=== PATIENT | male | born 2000 | race Caucasian/White ===

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

== ENCOUNTER → 2019-01-29 11:04 | Outpatient (CLI) | payer OTHER, SELFPAY | DX: Z23 Encounter for immunization (principal) | CPT/HCPCS: 90471; 90686 ==

== ENCOUNTER 2019-05-18 09:56 | Emergency (ER) | payer OTHER, SELFPAY ==
[2019-05-18 09:57] VITALS: BP 142/74; PULSE 78; RESP 18; TEMP 36.7; O2SAT 99
--- NOTE | 2019-05-18 10:13 | ED_ITS ---
HPI - Headache General Chief Complaint: Headache Stated Complaint: MIGRAINES 6XD PERSCRIPTION/ WORSEING/ EAR PAIN Time Seen by Provider: 05/18/19 10:12 Mode of arrival: Ambulatory Limitations: no limitations History of Present Illness HPI Narrative: Otherwise healthy 19-year-old gentleman presents with headache for 6 days. Seen on day 2 by his primary care physician and got a IM injection of Toradol which helped for approximately a day. He was also given p.o. Toradol and he has taken 1 tablet a day for the next number of days with no relief from the headache. Yesterday he began having vomiting and diarrhea and at this point is unable to keep food or liquids in and the headache is getting worse. He also complains of left ear tinnitus and decreased hearing. Denies fevers or chills or additional neurologic symptoms, no cough, abdominal pain, edema, rashes Related Data Allergies Allergy/AdvReac Type Severity Reaction Status Date / Time penicillin G Allergy Unknown Verified 05/18/19 11:16 Review of Systems Review of Systems Narrative: All systems reviewed and are unremarkable except as noted in HPI and below Patient History Medical History (Updated 05/18/19 @ 13:09 by Natty Ramirez MD) Attention deficit hyperactivity disorder (ADHD), combined type (Acute) Social History Smoking Status: Never smoker Smoking Status: Never smoker Substance Use Type: does not use Exam Narrative Exam Narrative: General: Fatigued appearing, in no acute distress. Able to give a complete and coherent history. Well-nourished well-developed HEENT: Moist mucous membranes, normal sclera with reactive pupils, left lid droop that is chronic. Left tympanic membrane is completely occluded with cerumen right is unremarkable Neck: No JVD, supple Respiratory: Lungs are clear to auscultation, no wheezing no rales no rhonchi. Full and symmetrical air movement Cardiac: Regular rate and rhythm no murmurs no bruits Abdomen: Soft nontender good bowel tones, no flank pain Skin: Warm and dry, no rashes Neurologic: Grossly neurologically intact with no obvious asymmetries or abnormalities Extremities: No trauma, well perfused Psych: Cooperative, appropriate insight and affect Initial Vital Signs Initial Vital Signs: Vital Signs Temperature 98.1 F 05/18/19 09:57 Pulse Rate 78 05/18/19 09:57 Respiratory Rate 18 05/18/19 09:57 Blood Pressure 142/74 H 03/08/20 09:57 Pulse Oximetry 99 05/18/19 09:57 Course Orders Ordered: Discontinued Medications Dexamethasone (Decadron) 10 mg IV NOW ONE Stop: 05/18/19 10:29 Last Admin: 05/18/19 11:05 Dose: 10 mg Documented by: EMELINA Diphenhydramine HCl (Benadryl) 25 mg IV NOW ONE Stop: 05/18/19 10:29 Last Admin: 05/18/19 11:04 Dose: 25 mg Documented by: EMELINA Sodium Chloride (Normal Saline 0.9%) 1,000 mls @ 1,000 mls/hr IV BOLUS ONE Stop: 05/18/19 11:27 Last Infusion: 05/18/19 12:36 Dose: 0 mls/hr Documented by: Admin: 05/18/19 11:04 Dose: 1,000 mls/hr Documented by: EMELINA Metoclopramide HCl (Reglan) 10 mg IV NOW ONE Stop: 05/18/19 10:29 Last Admin: 05/18/19 11:05 Dose: 10 mg Documented by: EMELINA Vital Signs Vital signs: Vital Signs - 8 hr 05/18/19 09:57 05/18/19 11:23 Temperature 98.1 F Pulse Rate 78 55 L Respiratory Rate 18 18 Blood Pressure 142/74 H Blood Pressure [Left Arm] 131/66 Pulse Oximetry 99 96 [facility] - Headache Medical Records Attestation: I reviewed the patient's medical records. [facility] Narrative Medical decision making narrative: Presents with 6 days of headache severe enough the last 48 hours has begun to vomit. Moderately dehydrated no acute neurologic changes. Improved with hydration Reglan IV Benadryl Decadron given for length of the headache. He does have p.o. ketorolac available at home. Significantly improved by time of discharge in safe for home discharge at this time. Discharge Plan Departure Patient Disposition: Home Clinical Impression: Acute dehydration Migraine Qualifiers: Migraine type: without aura Status migrainosus presence: without status migrainosus Intractability: not intractable Qualified Code(s): G43.009 - Migraine without aura, not intractable, without status migrainosus Vomiting Qualifiers: Vomiting type: unspecified Vomiting Intractability: non-intractable Nausea presence: with nausea Qualified Code(s): R11.2 - Nausea with vomiting, unspecified Instructions: DI for Migraine Activity Restrictions/Additional Instructions: Thank you for coming in I am sorry about the headache that is been there for the whole week. In the emergency room your given 2 L of IV fluid, Reglan for both nausea and headache control and since the headache has been present for almost a week your also given 10 mg of IV Decadron (a steroid) and IV Benadryl to make both of those medications more effective I am glad you are feeling better. I would encourage you to keep your follow-up appointment with your primary care physician tomorrow. If there are new or concerning symptoms, please return to the emergency room and I happy to re-evaluate. Referrals: Jennifer Feldman ARNP [Primary Care Provider] -
[2019-05-18] MEDS: diphenhydrAMINE 50 MG/ML VIAL 25 MG IV (11:04)
[2019-05-18] MEDS: SODIUM CHLORIDE 0.9% 1,000 ML 1000 ML IV (11:04)
[2019-05-18] MEDS: DEXAMETHASONE 10 MG/ML VIAL IV (11:05)
[2019-05-18] MEDS: METOCLOPRAMIDE 10 MG/2 ML INJ IV (11:05)
--- NOTE | 2019-05-18 11:21 | PC.NURSE ---
6 days of right amish headache, +nausea,, denies fever, vomiting, denies visual changes, denies injuries. sensitive to noise, denies photophobia, moving all extremities. skin warm dry pink.
[2019-05-18 11:23] VITALS: BP 131/66; PULSE 55; RESP 18; O2SAT 96
[2019-05-18 13:24] VITALS: BP 127/64; PULSE 77; RESP 16; O2SAT 100
== END 2019-05-18 13:24 | disposition home or self-care (01) ==
PROVIDERS: Emergency Provider Emergency Medicine; PCP Internal Medicine
DX: E86.0 Dehydration (principal); G43.009 Migraine without aura, not intractable, without status migrainosus; R11.2 Nausea with vomiting, unspecified
CPT/HCPCS: 96361; 96374; 96375; 99284; J1100; J1200; J2765

== ENCOUNTER → 2019-05-21 13:28 | Outpatient (CLI) | payer OTHER, SELFPAY ==
--- NOTE | 2019-05-21 | DI.MRI.S_ITS ---
PROCEDURE: MR HEAD/BRAIN WO/W CON INDICATIONS: Headache TECHNIQUE: Noncontrast axial T1 spin echo, axial T2 fast spin echo, sagittal and axial FLAIR, coronal T2 fast spin echo, axial gradient echo, axial diffusion and ADC through the brain. After the administration of contrast, axial and coronal 3D VIBE or T1 spin echo with fat saturation through the brain. COMPARISON: None. FINDINGS: Image quality: Excellent. CSF Spaces: Basal cisterns are patent. No extra-axial fluid collections. Ventricles are normal in size and shape. Brain: No midline shift. No intracranial bleeds or masses. No abnormal intracranial enhancement. The brainstem appears normal. Diffusion-weighted images demonstrate no acute ischemic insults. No chronic ischemic insults. Normal intravascular flow voids are present. Skull and face: Calvarial marrow is normal in signal. Orbits appear normal. Bilateral scalp skin nodules are seen for example image 17/9, image 16/9 which are technically indeterminate and recommend direct visual inspection Sinuses: Sinuses and mastoids appear clear. IMPRESSION: No evidence of acute ischemia. No acute intracranial signal abnormality or enhancement. Nonspecific multiple scalp skin nodules as above, technically indeterminate. Recommend direct visual inspection Dictated by: Laureano Olmos M.D. on 05/21/2019 at 14:34 Approved by: Laureano Olmos M.D. on 05/21/2019 at 14:42
== END ==
PROVIDERS: PCP Family Medicine; Referring Provider Family Medicine; Visit Provider Family Medicine
DX: R51 Headache (principal); R22.0 Localized swelling, mass and lump, head
CPT/HCPCS: 70553

== ENCOUNTER 2019-11-22 21:21 | Emergency (ER) | payer OTHER, SELFPAY ==
[2019-11-22 21:31] VITALS: BP 129/83; PULSE 74; RESP 18; TEMP 36.9; O2SAT 98; BMI 32.5
--- NOTE | 2019-11-22 21:47 | ED.UPPEXIN ---
HPI - Extremity Injury (Upper) General Chief Complaint: Extremity Injury, Upper Stated Complaint: something stuck him at work, R hand burning Time Seen by Provider: 11/22/19 21:45 Source: patient Mode of arrival: Ambulatory Limitations: no limitations History of Present Illness HPI narrative: 19-year-old otherwise healthy gentleman at work today noticed a slight irritation to the back of his right hand. Was worried that it could be a needle stick or a bug bite. Each time he put gloves back on he would become increasingly hot and irritated. Related Data Allergies Allergy/AdvReac Type Severity Reaction Status Date / Time penicillin G Allergy Unknown Verified 05/18/19 11:16 Review of Systems Review of Systems Narrative: No fevers, chills, cough, erythema to the hand or lymphangitic spread Patient History Medical History Attention deficit hyperactivity disorder (ADHD), combined type (Acute) Social History Smoking Status: Never smoker Smoking Status: Never smoker alcohol intake frequency: holidays/special occasions only Substance Use Type: marijuana Exam Narrative Exam Narrative: General: Alert appropriate in no acute distress Respiratory: Able to speak in full sentences, no obvious respiratory distress Skin: No obvious rashes, warm and dry Neurologic: Grossly intact no obvious asymmetries or abnormalities Psych, appropriate insight and affect, cooperative Extremity: There is a 4 mm abrasion in the center of the dorsum of the right hand consistent with contact dermatitis associated with removing gloves repeated times over the course of the day. It does not appear to be a needlestick injury, an insect bite or any type of infection Initial Vital Signs Initial Vital Signs: Vital Signs Temperature 98.4 F 11/22/19 21:31 Pulse Rate 74 11/22/19 21:31 Respiratory Rate 18 11/22/19 21:31 Blood Pressure 129/83 11/22/19 21:31 Pulse Oximetry 98 11/22/19 21:31 Course Orders Ordered: Discontinued Medications Bacitracin (Bacitracin) 1 applic TOP NOW ONE Stop: 11/22/19 22:39 Last Admin: 11/22/19 22:40 Dose: 1 applic Documented by: KWAME Vital Signs Vital signs: Vital Signs - 8 hr 11/22/19 21:31 Temperature 98.4 F Pulse Rate 74 Respiratory Rate 18 Blood Pressure 129/83 Pulse Oximetry 98 Discharge Plan Departure Patient Disposition: Home Clinical Impression: Contact dermatitis Qualifiers: Contact dermatitis type: unspecified Contact dermatitis trigger: other trigger Qualified Code(s): L25.8 - Unspecified contact dermatitis due to other agents Instructions: DI for Contact Dermatitis Activity Restrictions/Additional Instructions: Thank you for coming in today I think this is a contact dermatitis caused by a using alcohol wash and taking your gloves on and off frequently. Use some antibiotic ointment (such as Neosporin or something similar) and a Band-Aid when it starts to get a little bit reddened like it currently is. It should heal up nicely. To prevent this from continuing to be a problem, make sure that you are not repeating your gloves off your hands to irritate the skin. Using a good hand lotion at night to keep the skin moist can also help. I recommend trying Eucerin cream (or the generic equivalent sitting right next to it on the shelf in the grocery store) every night. It seems like it is getting worse, please follow-up with your primary care physician or return to the emergency department I wish you the best Referrals: Berny Feldman MD [Primary Care Provider] -
--- NOTE | 2019-11-22 22:10 | PC.NURSE ---
Patient works in [employer]. 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 Patient reports inspected gloves for puncture or tear but did not see any. Denies exposure to chemicals. Patient reports stinging/burning sensation to back of hand that has been continues since onset. Radial pulse +2, cap refill <2 seconds, and patient reports normal ROM in fingers and hand.
[2019-11-22] MEDS: BACITRACIN OINT 0.9 GM PCKT 1 APPLIC TOP (22:40)
[2019-11-22 22:49] VITALS: BP 123/84; PULSE 68; RESP 16; O2SAT 98
== END 2019-11-22 22:50 | disposition home or self-care (01) ==
PROVIDERS: Emergency Provider Emergency Medicine; PCP Family Medicine
DX: L25.8 Unspecified contact dermatitis due to other agents (principal); Y99.0 Civilian activity done for income or pay
CPT/HCPCS: 99282; 99283

== ENCOUNTER → 2020-01-20 | Outpatient (CLI) | payer OTHER, SELFPAY | PROVIDERS: PCP Family Medicine; Referring Provider Internal Medicine; Visit Provider Internal Medicine | DX: Z23 Encounter for immunization (principal) | CPT/HCPCS: 90471; 90686 ==

== ENCOUNTER → 2020-01-31 08:31 | Outpatient (CLI) | payer OTHER, SELFPAY ==
[2020-01-31 09:47] LABS: COVID19 -Nasal RAPID Negative (Negative)
== END ==
PROVIDERS: PCP Family Medicine; Visit Provider Physician Assistant
DX: Z11.59 Encounter for screening for other viral diseases (principal); R51.9 Headache, unspecified
CPT/HCPCS: 87635

== ENCOUNTER → 2024-07-02 12:49 | Outpatient (CLI) | payer OTHER, SELFPAY ==
--- NOTE | 2024-07-02 12:52 | DI.RAD.S_ITS ---
PROCEDURE: XR CHEST 2V INDICATIONS: Chest pain, unspecified TECHNIQUE: 2 views of the chest were acquired. COMPARISON: [facility], CR, XR CHEST 1 VIEW, 10/26/2023, 19:36. FINDINGS: Surgical changes and devices: None. Lungs and pleura: Lungs are clear. No pleural effusions or pneumothorax. Mediastinum: Mediastinal contours are normal. Heart size is normal. Bones and chest wall: No suspicious bony abnormalities. Soft tissues appear unremarkable. IMPRESSION: No acute cardiopulmonary abnormality is seen. Dictated by: Galdino Chamorro M.D. on 07/02/2024 at 22:26 Approved by: Galdino Chamorro M.D. on 07/02/2024 at 22:27
== END ==
PROVIDERS: PCP Family Medicine; Referring Provider Family Medicine; Visit Provider Family Medicine
DX: R07.9 Chest pain, unspecified (principal)
CPT/HCPCS: 71046

== ENCOUNTER → 2024-07-03 15:02 | Outpatient (CLI) | payer OTHER, SELFPAY ==
--- NOTE | 2024-07-03 16:57 | DI.NM.S_ITS ---
DATE OF SERVICE: 07/03/2024 EXERCISE STRESS TEST INDICATIONS: Chest pain. CARDIAC STRESS: The patient underwent exercise stress test under the supervision of an attending staff using standard Ric protocol. The patient walked on Ric protocol for 9 minutes and 30 seconds, achieved maximum heart rate of 184, which was 94% of target heart rate. Resting blood pressure 130/86 and peak blood pressure 180/90. 10.1 METS of workload. ANG positive 35%. Baseline rhythm sinus with intermittent monomorphic PVCs. During stress, PVCs got suppressed and re-appeared in recovery. No ventricular tachycardia. No chest pain. Had some shortness of breath. There was normal recovery. CONCLUSION: Exercise stress test is negative for inducible ischemia. 10.1 METS of workload. Normal hemodynamic response. Baseline rhythm sinus with isolated PVCs which are monomorphic. During stress, PVCs got completely suppressed and re-appeared in recovery. No ventricular tachycardia. No anginal symptoms. Overall, low-risk exercise stress test. Gaston Fraga - IZAIAH/jose raul/KARLY doc#: [id number]/job#: [id number] dd: 07/03/2024 16:35:00 dt: 07/03/2024 16:41:00 DICTATING MD/COPIES TO: Greta Carroll MD COPIES MNE: ALEXANDRA;
== END ==
LOC: NUCM 15:03
PROVIDERS: PCP Family Medicine; Referring Provider Family Medicine; Visit Provider Family Medicine
DX: R07.9 Chest pain, unspecified (principal)
CPT/HCPCS: 93017

== ENCOUNTER 2024-08-17 18:12 | Emergency (ER) | payer OTHER, SELFPAY ==
[2024-08-17 18:25] VITALS: BP 133/80; PULSE 74; RESP 20; TEMP 36.6; O2SAT 96; BMI 34.4
== END 2024-08-17 19:22 | disposition left against medical advice (07) ==
PROVIDERS: Emergency Provider Emergency Medicine; PCP Family Medicine
DX: Z53.21 Procedure and treatment not carried out due to patient leaving prior to being seen by health care provider (principal)
CPT/HCPCS: 99281